=== PATIENT | male | born 1995 | race Caucasian/White ===

== ENCOUNTER 2018-04-15 18:18 | Emergency (ER) | payer SELFPAY ==
--- NOTE | 2018-04-15 19:33 | RAD ---
TWO VIEWS OF THE CHEST: 04/15/18 COMPARISON: None. HISTORY: Chest pain. FINDINGS: The lungs are clear. Heart and mediastinal contours are unremarkable. IMPRESSION: No acute findings. POS: [facility]
[2018-04-15] MEDS ORDERED: Ondansetron ODT 4 MG TAB ONE (19:51)
[2018-04-15] MEDS ORDERED: Lidocaine Viscous Sol 2% 15 ml UD Cup ONE (19:51)
[2018-04-15] MEDS ORDERED: Mag-Al Plus 1200 MG/1200 MG/120 MG/30 ML UDCUP ONE (19:51)
== END 2018-04-15 20:00 | disposition home or self-care (01) ==
LOC: MADERS 18:18
DX: K29.00 Acute gastritis without bleeding (principal); K21.9 Gastro-esophageal reflux disease without esophagitis
CPT/HCPCS: 71046; Q0162

== ENCOUNTER 2018-08-06 18:29 | Emergency (ER) | payer SELFPAY ==
[2018-08-06] MEDS ORDERED: Benzonatate 100 MG CAP ONE (20:37)
[2018-08-06] MEDS ORDERED: predniSONE 20 MG TAB ONE (20:37)
== END 2018-08-06 20:43 | disposition home or self-care (01) ==
LOC: MADERS 18:29
DX: J06.9 Acute upper respiratory infection, unspecified (principal)
CPT/HCPCS: 87081; 87430; 87804; 99283